=== PATIENT | male | born 1960 | race African-American/Black ===

== ENCOUNTER 2018-08-21 15:27 | Emergency (ER) | payer BC ==
[~2018-08-21] VITALS: Ht 172.7 cm; Wt 119.3 kg
[2018-08-21 15:27] VITALS: BP 146/88
[2018-08-21] MEDS ORDERED: IBUPROFEN 600 MG TABLET PO ONE ×2 (16:12→16:30)
== END 2018-08-21 17:26 | disposition home or self-care (01) ==
LOC: ER 15:28
DX: S92.352A Displaced fracture of fifth metatarsal bone, left foot, initial encounter for closed fracture (principal); I10 Essential (primary) hypertension; W22.8XXA Striking against or struck by other objects, initial encounter; Y93.89 Activity, other specified; Y92.89 Other specified places as the place of occurrence of the external cause; Y99.8 Other external cause status
CPT/HCPCS: 29515; 99282; A4606; Z7610

== ENCOUNTER 2018-10-29 11:14 | Outpatient (CLI) | payer BC | END 2018-10-29 23:59 | disposition home or self-care (01) | LOC: US 11:14 | PROVIDERS: ATTEND Family Medicine | DX: I10 Essential (primary) hypertension (principal) | CPT/HCPCS: 76770-TC ==